=== PATIENT | female | born 1995 | race Two or more races ===

== ENCOUNTER 2019-05-07 13:49 | Emergency (ER) | payer MEDICAID ==
[~2019-05-07] VITALS: Ht 162.6 cm; Wt 90.7 kg
[2019-05-07 16:06] VITALS: BP 142/91
[2019-05-07] MEDS ORDERED: KETOROLAC TROMETH 60MG/2ML VIAL IM ONE (16:45)
[2019-05-07] MEDS ORDERED: HYDROcodone-ACET 5/325MG TAB PO ONE (16:45)
== END 2019-05-07 17:10 | disposition home or self-care (01) ==
LOC: ER 13:57
DX: M54.5 Low back pain (principal); M25.552 Pain in left hip; M25.551 Pain in right hip
CPT/HCPCS: 72100; 72170; 81025; 96372; 99284; J1885

== ENCOUNTER 2020-01-15 22:39 | Emergency (ER) | payer MEDICAID, OTHER ==
[~2020-01-15] VITALS: Ht 162.6 cm; Wt 95.3 kg
[2020-01-16 01:00] VITALS: BP 103/49
== END 2020-01-16 01:26 | disposition home or self-care (01) ==
LOC: ER 22:45
DX: J06.9 Acute upper respiratory infection, unspecified (principal); J20.9 Acute bronchitis, unspecified